=== PATIENT | male | born 1995 | race Caucasian/White ===

== ENCOUNTER 2018-03-03 11:26 | Observation (INO) | payer OTHER ==
[~2018-03-03] VITALS: Ht 182.9 cm; Wt 69.4 kg
[~2018-03-03 11:26] MED LIST: ACET-2043 PO; ALBU2SYR19 NEB; DICY-42 PO; DOCU-416 PO; DORN1SOL2 IH; ENZY1TAB9 PO; HYDR2TAB74 PO; IBUP600T22 PO; LANS30CA63 PO; LIPA1CAP28 PO; LIPA1CAP61 PO; LOR5/325 PO; METO-734 PO; NAPR500T75 PO; PANT40TA65 PO; PER PO; RANI-318 PO; SAL50R INH; SUCR1ORA17 PO; SUCR1TAB51 PO; SUCR1TAB85 PO; SULF-198 PO; TRAM-420 PO; TRAM-627 PO
[2018-03-03] MEDS ORDERED: [UNRECOGNIZED DRUG - CODE] PO (11:37)
[2018-03-03] MEDS ORDERED: NS(*) 0.9% 1000 ML BAG 1,000 ML IV ONE (11:59)
--- NOTE | 2018-03-03 11:59 | ER Report ---
History and Physical Time Seen By MD: 11:59 Hx. of Stated Complaint: PT REPORTS ABD PAIN STARTED ABOUT MID DAY YESTERDAY, REPORTS NAUSEA AND DIARRHEA AND FEVERS, DENIES VOMITING HPI/ROS CHIEF COMPLAINT: Periumbilical abdominal pain HISTORY OF PRESENT ILLNESS: Patient is a 22-year-old male here with complaints of periumbilical abdominal pain, nausea without vomiting, subjective fevers, decreased appetite since yesterday at approximately noon. Patient did tolerate breakfast shortly prior to arrival but reports worsening abdominal pains which are episodic, sharp in nature, severe. Patient also reports that he did pass a bowel movement this morning which was loose which is his baseline in the setting of cystic fibrosis. Patient is treated with pancreatic enzymes, Symdeko, nebulized albuterol, chest physiotherapy vest. Patient has been reporting general malaise, subjective fevers though he is afebrile at this time. Patient was noted to have a cough productive of sputum at baseline, oxygen saturations which are dipping into the mid 80's %, shortness of breath. Patient was tachycardic at time of evaluation, afebrile. Patient did not take analgesics prior to coming to the emergency department. He denies blood in the stools, urine, chest pains, rash. REVIEW OF SYSTEMS: Constitutional: + fever, + chills. Eyes: No discharge. ENT: No sore throat. Cardiovascular: No chest pain, no palpitations. Respiratory: + cough, + shortness of breath. Gastrointestinal: + selina umbilical abdominal pain, no vomiting, + nausea. Genitourinary: No hematuria. Musculoskeletal: No back pain. Skin: No rashes. Neurological: No headache. Allergies: Coded Allergies: No Known Drug Allergies (Unverified , 03/03/18) Home Meds Reported Medications Tezacaftor/Ivacaftor (Symdeko 100/150 mg-150 mg Tabs) 100-150 Mg Tablet.seq, 1 TAB PO BID 03/03/18 Lipase/Protease/Amylase (DELORIS SKY 12,000 UNITS CAPSULE) 1 Each Capsule.dr, 12 EACH PO DIRECTED WITH MEALS 02/02/15 Albuterol Sulf (ALBUTEROL SULFATE) 2 Mg/5 Ml Syrp, 2 MG NEB PRN 07/19/13 Discontinued Reported Medications Lipase/Protease/Amylase (DOMO SKY 21,000 UNIT CAP) 1 Each Capsule.dr, 1 EACH PO 02/02/15 Hx Smoking: No Smoking Status: Never Smoker Exposure to Second Hand Smoke?: No Hx Substance Use Disorder: No Hx Alcohol Use: No Constitutional Vital Sign - Last 24 Hours 03/03/18 03/03/18 03/03/18 03/03/18 11:30 11:31 11:41 11:45 Temp 98.4 Pulse 110 99 Resp 16 B/P (MAP) 130/85 (100) 130/85 Pulse Ox 89 92 O2 Delivery Room Air O2 Flow Rate 2.0 03/03/18 03/03/18 03/03/18 03/03/18 12:00 12:15 12:45 13:00 Pulse 99 97 90 91 B/P (MAP) 127/77 (94) Pulse Ox 90 91 90 90 03/03/18 03/03/18 03/03/18 03/03/18 13:15 13:30 13:45 14:00 Pulse 83 78 73 B/P (MAP) 118/77 (91) Pulse Ox 90 91 89 81 Physical Exam General Appearance: The patient is alert, has no immediate need for airway protection and no signs of toxicity. Moderate distress due to pain, nausea Eyes: Pupils equal and round no pallor or injection. ENT, Mouth: Mucous membranes are moist. Respiratory: There are no retractions, lungs are clear to auscultation. Cardiovascular: + tachycardic, regular Gastrointestinal: Abdomen is soft and + tender in the mid epigastric and periumbilical distribution, no masses, bowel sounds present Neurological: No focal deficits Skin: Warm and dry, no rashes. Musculoskeletal: Neck is supple non tender. Extremities are nontender, nonswollen and have full range of motion. DIFFERENTIAL DIAGNOSIS: After history and physical exam differential diagnosis was considered for abdominal pain including but not limited to appendicitis, cholecystitis, gastritis and urinary tract infection, obstruction, CF exa cerbation Medical Decision Making Data Points Result Diagram: 03/03/18 1136 03/03/18 1136 Laboratory Hematology Test 03/03/18 11:36 03/03/18 12:57 Red Blood Count 5.58 M/uL (4.00-5.60) Mean Corpuscular Volume 88.7 fL (80.0-96.0) Mean Corpuscular Hemoglobin 29.7 pg (26.0-33.0) Mean Corpuscular Hemoglobin Concent 33.4 g/dL (32.0-36.0) Red Cell Distribution Width 13.3 % (11.5-14.5) Mean Platelet Volume 8.4 fL (7.2-11.1) Neutrophils (%) (Auto) 80.5 % (39.4-72.5) Lymphocytes (%) (Auto) 9.2 % (17.6-49.6) Monocytes (%) (Auto) 8.7 % (4.1-12.4) Eosinophils (%) (Auto) 1.2 % (0.4-6.7) Basophils (%) (Auto) 0.4 % (0.3-1.4) Nucleated RBC Relative Count (auto) 0.0 /100WBC Neutrophils # (Auto) 13.1 K/uL (2.0-7.4) Lymphocytes # (Auto) 1.5 K/uL (1.3-3.6) Monocytes # (Auto) 1.4 K/uL (0.3-1.0) Eosinophils # (Auto) 0.2 K/uL (0.0-0.5) Basophils # (Auto) 0.1 K/uL (0.0-0.1) Nucleated RBC Absolute Count (auto) 0.00 K/uL Peripheral Blood Smear No Y/N Sodium Level 141 mmol/L (137-145) Potassium Level 4.1 mmol/L (3.5-5.0) Chloride Level 100 mmol/L (98-107) Carbon Dioxide Level 29 mmol/L (22-30) Blood Urea Nitrogen 12 mg/dl (9-21) Creatinine 0.90 mg/dl (0.66-1.25) Glomerular Filtration Rate Calc > 60.0 Random Glucose 83 mg/dl (75-110) Calcium Level 9.1 mg/dl (8.4-10.2) Total Bilirubin 1.3 mg/dl (0.2-1.3) Aspartate Amino Transf (AST/SGOT) 30 U/L (0-35) Alanine Aminotransferase (ALT/SGPT) 37 U/L (0-56) Alkaline Phosphatase 95 U/L (0-126) Total Protein 8.2 g/dl (6.3-8.2) Albumin 4.0 g/dl (3.5-5.0) Lipase < 10 U/L (23-300) Lactate 0.9 mmol/L (0.7-2.1) Chemistry Test 03/03/18 11:36 03/03/18 12:57 White Blood Count 16.2 k/uL (4.5-11.0) Red Blood Count 5.58 M/uL (4.00-5.60) Hemoglobin 16.5 g/dL (14.0-18.0) Hematocrit 49.5 % (42.0-52.0) Mean Corpuscular Volume 88.7 fL (80.0-96.0) Mean Corpuscular Hemoglobin 29.7 pg (26.0-33.0) Mean Corpuscular Hemoglobin Concent 33.4 g/dL (32.0-36.0) Red Cell Distribution Width 13.3 % (11.5-14.5) Platelet Count 283 K/uL (150-450) Mean Platelet Volume 8.4 fL (7.2-11.1) Neutrophils (%) (Auto) 80.5 % (39.4-72.5) Lymphocytes (%) (Auto) 9.2 % (17.6-49.6) Monocytes (%) (Auto) 8.7 % (4.1-12.4) Eosinophils (%) (Auto) 1.2 % (0.4-6.7) Basophils (%) (Auto) 0.4 % (0.3-1.4) Nucleated RBC Relative Count (auto) 0.0 /100WBC Neutrophils # (Auto) 13.1 K/uL (2.0-7.4) Lymphocytes # (Auto) 1.5 K/uL (1.3-3.6) Monocytes # (Auto) 1.4 K/uL (0.3-1.0) Eosinophils # (Auto) 0.2 K/uL (0.0-0.5) Basophils # (Auto) 0.1 K/uL (0.0-0.1) Nucleated RBC Absolute Count (auto) 0.00 K/uL Peripheral Blood Smear No Y/N Glomerular Filtration Rate Calc > 60.0 Calcium Level 9.1 mg/dl (8.4-10.2) Total Bilirubin 1.3 mg/dl (0.2-1.3) Aspartate Amino Transf (AST/SGOT) 30 U/L (0-35) Alanine Aminotransferase (ALT/SGPT) 37 U/L (0-56) Alkaline Phosphatase 95 U/L (0-126) Total Protein 8.2 g/dl (6.3-8.2) Albumin 4.0 g/dl (3.5-5.0) Lipase < 10 U/L (23-300) Lactate 0.9 mmol/L (0.7-2.1) Depart Departure Latest Vital Signs Vital Signs Date Time Temp Pulse Resp B/P (MAP) Pulse Ox O2 Delivery O2 Flow Rate FiO2 03/03/18 14:00 81 03/03/18 13:45 73 03/03/18 13:30 118/77 (91) 03/03/18 11:41 2.0 03/03/18 11:31 98.4 16 Room Air Condition: Stable Disposition: HOME OR SELF-CARE PHILIP URIBE DO Mar 03, 2018 11:59
[2018-03-03] MEDS ORDERED: ONDANSETRON 4 MG/2 ML VIAL IVP ONE (12:00)
[2018-03-03] MEDS ORDERED: HYDROMORPHONE HCL 1 MG/ML SYRINGE IVP ONE (12:00)
[2018-03-03 12:09] LABS: PLATELET COUNT, AUTOMATED 283 K/uL (150-450)
[2018-03-03] MEDS ORDERED: IOPAMIDOL 76% 100 ML INFUS BTL 100 ML ONE (12:12)
[2018-03-03] MEDS ORDERED: KETAMINE HCL 500 MG/5 ML VIAL IVP ONE ×2 (12:50→12:55)
--- NOTE | 2018-03-03 13:49 | RADIOLOGY IMAGING REPORT ---
FACILITY: [facility] PATIENT NAME: Tobin Hager : 1995 MR: [id number] V: [id number] EXAM DATE: ORDERING PHYSICIAN: PHILIP URIBE TECHNOLOGIST: [place] [facility] [place] Tobin H[place] : 1995 Visit/Account:[id number] Date of Sevice: 03/03/2018 ABDOMEN/PELVIS WITH CONTRAST HISTORY: abd pain, periumbilical TECHNIQUE: Following administration of IV contrast contiguous axial images acquired through the abdom en/pelvis. Coronal and sagittal reformatting also performed.Dose Lowering Technique One of the following dose optimization techniques was utilized in the performance of this exam: Autom ated exposure control; adjustment of the mA and/or kV according to the patient's size; or use of an i terative reconstruction technique. Specific details can be referenced in the facility's radiology C T exam operational policy. CONTRAST: 75 mL Isovue-370 COMPARISON: June 14, 2014 FINDINGS: Visualized lung bases: Negative. Hepatobiliary: There is a small amount of pneumobilia present . There is mild diffuse hepatic stea tosis Spleen: Negative. Adrenals: Negative. Pancreas: Pancreas is not well seen and may be severely fatty replaced Kidneys ureters or bladder: Negative. Genitalia: Negative. GI: The patient is status post near-total colectomy. The previously noted ileostomy has been revers ed. There is marked distention of the distal small bowel loops with small bowel feces measuring up t o 6.8 cm in diameter. There is moderate distention of the residual distal sigmoid colon and rectum w ith feces as well. In the midabdomen there does appear to be a thickened loop of small bowel with as sociated narrowing. The stomach is markedly distended with particulate material which could be related to a recent meal v ersus gastric outlet obstruction either functional or mechanical. Vessels/spaces/nodes: Negative. Bones/soft tissues: Negative. Additional findings: None pertinent. IMPRESSION: There is a small amount of pneumobilia which could be related to reflux of air through the ampulla Diffuse hepatic steatosis Pancreas not well seen and may be severely fatty replaced Patient is status post near-total colectomy. There is marked distention of the distal small bowel lo ops with small bowel feces present and measures up to 6.8 cm in diameter. There is moderate distenti on of the residual distal small bowel and rectum with feces as well. In the midabdomen there appears to be a thickened loop of small bowel with associated narrowing although the distended bowel appears to be distal to this site. The etiology for the bowel distention is not well delineated. Correlati on with clinical findings i.e. presence or absence of bowel sounds needed The stomach is markedly distended with particulate material which could be related to a recent meal v ersus gastric outlet obstruction either functional or mechanical. Results were called to PHILIP URIBE at 03/03/2018 1:44 PM. Report Dictated By: Melissa Vega MD at 03/03/2018 1:20 PM Report E-Signed By: Melissa Vega MD at 03/03/2018 1:44 PM WSN:[email or web address]
[2018-03-03] MEDS ORDERED: ONDANSETRON 4 MG/2 ML VIAL IVP PRN (14:00)
[2018-03-03] MEDS ORDERED: ALBUTEROL/IPRATROPIUM 3 ML NEB NEB PRN (14:00)
[2018-03-03] MEDS ORDERED: FLUSH 10 ML SYR IVP PRN (14:00)
[2018-03-03 14:30] VITALS: BP 105/66
[2018-03-03] MEDS ORDERED: LIPA1CAP61 PO (14:45)
[2018-03-03] MEDS ORDERED: MULT-1377 PO (14:48)
[2018-03-03] MEDS ORDERED: DORN1SOL2 IH (14:48)
--- NOTE | 2018-03-03 15:02 | RADIOLOGY IMAGING REPORT ---
[place] [facility] [place] Tobin Hager : 1995 MR: [id number] V: [id number] EXAM DATE: ORDERING PHYSICIAN: PHILIP URIBE TECHNOLOGIST: Location: Patient: Tobin Hager : 1995 Visit/Account:[id number] Date of Sevice: 03/03/2018 Exam type: CHEST PA AND LAT History: SOB, hypoxia Comparison: February 02, 2015. Findings: There is severe peribronchial thickening throughout the lungs which is most prominent in the mid to u pper lung zones. This has markedly increased when compared the prior study. The findings are consis tent with the clinical history of cystic fibrosis.. Given the interval change this could represent a superimposed infectious/inflammatory process. The cardiac silhouette appears normal. The trachea i s in midline. IMPRESSION: 1. There is severe peribronchial thickening is prominent in the mid to upper lung judd which has i ncreased when compared the prior study. This finding is consistent with the clinical history of cyst ic fibrosis. Given the interval change superimposed infectious/inflammatory process on the backgroun d of chronic peribronchial thickening cannot be excluded Report Dictated By: Melissa Vega MD at 03/03/2018 2:46 PM Report E-Signed By: Melissa Vega MD at 03/03/2018 2:58 PM WSN:[email or web address]
[2018-03-03] MEDS: NS(*) 0.9% 1000 ML BAG 1,000 ML IV PRN (16:27)
[2018-03-03] MEDS: KETOROLAC 30 MG/ML VIAL IVP PRN ×2 (16:37→22:52)
--- NOTE | 2018-03-03 18:28 | Gen Surgery History & Physical ---
History of Present Illness Chief Complaint Abdominal pain, nausea History of Present Illness 22yo male with cystic fibrosis presents with 1 day of increased abdominal pain and nausea. He has chronic abdominal pain due to his cystic fibrosis, chronic pancreatitis, and previous abdominal operations. His symptoms started last evening but he "slept like a rock" overnight but when he awoke his symptoms were still present and even worse prompting him to come in to the ER. In the ER, his WBC was found to be 16K and a CT revealed diffusely dilated distal small bowel and residual sigmoid colon and rectum with stool in rectum/sigmoid and even up into the small bowel. 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 I have admitted him to the handy for further management. At the time of my exam, his abdominal pain is back down to his baseline and he has no further nausea. He report being VERY hungry and wishes to eat. He is passing flatus and his BMs are at his baseline chronic diarrhea since his colectomy. History Problems: (1) H/O colectomy Status: Chronic (2) Personal history of cystic fibrosis Status: Chronic (3) Pancreatic insufficiency due to cystic fibrosis Status: Chronic Home Meds Reported Medications Multivits&Mins/Fa/Coenzyme Q10 (AQUADEKS CHEWABLE TABLET) 1 Each Tab.chew, 1 TAB PO QDAY, TAB.CHEW 03/03/18 Dornase Milo (PULMOZYME) 1 Mg/1 Ml Solution, 1 MG IH QDAY 03/03/18 Lipase/Protease/Amylase (DELORIS SKY 12,000 UNITS CAPSULE) 1 Each Capsule., 6-8 EACH PO 6 tabs with snacks; 8 tabs wth meals 03/03/18 Tezacaftor/Ivacaftor (Symdeko 100/150 mg-150 mg Tabs) 100-150 Mg Tablet.seq, 1 TAB PO BID 03/03/18 Albuterol Sulf (ALBUTEROL SULFATE) 2 Mg/5 Ml Syrp, 2 MG NEB PRN 07/19/13 Discontinued Reported Medications Lipase/Protease/Amylase (DELORIS SKY 12,000 UNITS CAPSULE) 1 Each Capsule.dr, 12 EACH PO DIRECTED WITH MEALS 02/02/15 Lipase/Protease/Amylase (DOMO SKY 21,000 UNIT CAP) 1 Each Capsule.dr, 1 EACH PO 02/02/15 Allergies: Coded Allergies: No Known Drug Allergies (Unverified , 03/03/18) Review of Systems All Systems Reviewed/Normal: Yes, Except as Noted Gastrointestinal: Nausea, Abdominal Pain Exam General Appearance: Alert, Awake, No Acute Distress, Afebrile Neuro: No Gross deficits Eyes: PERRLA GI: Other (Soft, nondistended, mild diffuse TTP, no peritoneal signs) Extremities: Warm, Perfused Psych: Alert & Oriented X3, Appropriate Mood & Affect Medical Decision Making Data Points Result Diagram: 03/03/18 1136 03/03/18 1136 Assessment and Plan Problems: (1) Abdominal pain Status: Acute Assessment & Plan: 03/03/18: His presenting symptoms already seem to be improving. Difficult to say what they're due to. Clinically, he doesn't seem to have and SBO. Possible viral (or bacterial) enteritis. He is admitted and so will try a clear diet tonight and see how he's doing in the morning. Continue IV fluids and IV pain control (non-narcotic) tonight. I have explained the plan to him in detail and he seems to understand and he seems agreeable with this plan. (2) Nausea Status: Acute (3) Personal history of cystic fibrosis Status: Chronic (4) Pancreatic insufficiency due to cystic fibrosis Status: Chronic Condition Stable. Time Spent: < 30 min Venous Thromboembolism VTE Risk Physician Assess for VTE Risk: Yes Patient's VTE Risk: Low VTE Diagnostic Test 2 Days Prior to Admit: No Antithrombotics Is Pt On Any Antithrombotics?: No Problem Qualifiers (1) Abdominal pain: Abdominal location: generalized Qualified Codes: R10.84 - Generalized abdominal pain LATONYA ULLOA MD Mar 03, 2018 18:28
[2018-03-03 18:51] VITALS: BP 103/64
[2018-03-03] MEDS: ACETAMINOPHEN(*)1000 MG/100 ML 100 ML IVPB PRN (19:41)
[2018-03-03] MEDS ORDERED: ALBU2.5V36 INH (20:18)
[2018-03-03] MEDS ORDERED: LIPA1CAP63 PO ×2 (20:18→20:29)
[2018-03-03] MEDS: PATIENT'S OWN MED PO SCH (21:22)
[2018-03-03 22:45] VITALS: BP 103/68
[2018-03-04] MEDS: NS(*) 0.9% 1000 ML BAG 1,000 ML IV PRN (00:37)
[2018-03-04] MEDS: ACETAMINOPHEN(*)1000 MG/100 ML 100 ML IVPB PRN (01:55)
[2018-03-04] MEDS: KETOROLAC 30 MG/ML VIAL IVP PRN (04:56)
[2018-03-04 05:20] VITALS: BP 98/53
[2018-03-04 05:34] LABS: PLATELET COUNT, AUTOMATED 199 K/uL (150-450)
[2018-03-04] MEDS ORDERED: IBUPROFEN 600 MG TAB PO PRN (06:25)
[2018-03-04] MEDS ORDERED: ACETAMINOPHEN 325 MG TAB PO PRN (06:25)
--- NOTE | 2018-03-04 06:27 | General Surgery Progress Note ---
Subjective Progress Notes Subjective Pt without complaints this morning. Abdominal pain is at baseline. No N/V. Tolerating clear diet. Passing flatus and he had several BMs overnight. Physical Exam Vital Signs Date Time Temp Pulse Resp B/P (MAP) Pulse Ox O2 Delivery O2 Flow Rate FiO2 03/04/18 05:20 97.8 57 20 98/53 (68) 93 Nasal Cannula 1.0 Intake and Output 03/04/18 06:59 Intake Total 2350 ml Balance 2350 ml Intake Oral 250 ml IV Total 2100 ml # Voids 2 # Bowel Movements 3 General Appearance: Alert, Awake, No Acute Distress, Afebrile GI: Soft and Non-Tender Extremities: Warm, Perfused Result Diagram: 03/04/18 0503/04/18 0516 Assessment and Plan Problems: (1) Abdominal pain Status: Acute Assessment & Plan: 03/03/18: His presenting symptoms already seem to be improving. Difficult to say what they're due to. Clinically, he doesn't seem to have and SBO. Possible viral (or bacterial) enteritis. He is admitted and so will try a clear diet tonight and see how he's doing in the morning. Continue IV fluids and IV pain control (non-narcotic) tonight. I have explained the plan to him in detail and he seems to understand and he seems agreeable with this plan. 03/04/18: Doing better this morning. WBC down to normal. Afebrile and VSS. Tolerating clears. He feels that he's back to baseline. Will try regular diet and restart his home meds this morning and see how he feels. If he does OK with this then will send him home later today. If his symptoms recur, he'll need further w/u. (2) Nausea Status: Resolved (3) Personal history of cystic fibrosis Status: Chronic (4) Pancreatic insufficiency due to cystic fibrosis Status: Chronic Condition Stable. Time Spent: < 30 min Exam Sepsis Risk: No Definite Risk Problem Qualifiers (1) Abdominal pain: Abdominal location: generalized Qualified Codes: R10.84 - Generalized abdominal pain LATONYA ULLOA MD Mar 04, 2018 06:27
[2018-03-04 07:29] VITALS: BP 84/52
[2018-03-04] MEDS ORDERED: DORNASE ALFA IH SCH (09:00)
[2018-03-04] MEDS ORDERED: PANTOPRAZOLE SOD 40 MG IV VIAL IVP SCH (09:00)
[2018-03-04] MEDS ORDERED: MULTIVITAMINS TAB PO SCH ×2 (09:00→09:45)
[2018-03-04 09:24] VITALS: BP 95/58
[2018-03-04] MEDS: PATIENT'S OWN MED PO SCH ×2 (09:28→20:15)
[2018-03-04] MEDS: LIPASE/PROTEASE/AMYLASE 1 EACH CAPSULE.DR PO SCH ×2 (09:30→16:30)
[2018-03-04] MEDS: PANTOPRAZOLE SOD 40 MG TABEC PO SCH (09:33)
[2018-03-04] MEDS: MULTIVIT WITH IRON MINERALS PO SCH (10:00)
[2018-03-04 10:50] VITALS: Ht 182.9 cm; Wt 69.4 kg
[2018-03-04] MEDS ORDERED: LIPASE/PROTEASE/AMYLASE 1 EACH CAPSULE.DR PO PRN (11:30)
[2018-03-04 12:13] VITALS: BP 119/67
[2018-03-04] MEDS ORDERED: KETOROLAC 30 MG/ML VIAL IVP PRN (16:40)
[2018-03-04] MEDS ORDERED: ACETAMINOPHEN(*)1000 MG/100 ML 100 ML IVPB PRN (16:40)
[2018-03-04] MEDS: HYDROmorphone HCL 2 MG/ML SDV IVP PRN ×2 (16:53→18:52)
--- NOTE | 2018-03-04 18:10 | RADIOLOGY IMAGING REPORT ---
FACILITY: [facility] [place] PATIENT NAME: Ronald Hager : 1995 MR: [id number] V: [id number] EXAM DATE: ORDERING PHYSICIAN: LATONYA ULLOA TECHNOLOGIST: [place] [facility] [place] H[place] : 1995 Visit/Account:[id number] Date of Sevice: 03/04/2018 KUB SINGLE VIEW ABDOMEN HISTORY: Abdominal pain COMPARISON: None FINDINGS: Lower chest: Negative Abdomen: No free intraperitoneal air. There is a nonobstructive bowel gas pattern. There are no abn ormal calcifications. Bony structures are unremarkable. Moderate rectal stool. IMPRESSION: 1. Moderate rectal stool. Report Dictated By: Juan Brown MD at 03/04/2018 6:06 PM Report E-Signed By: Juan Brown MD at 03/04/2018 6:08 PM WSN:[email or web address]
[2018-03-04 18:16] VITALS: BP 119/67
[2018-03-04 23:37] VITALS: BP 110/59
[2018-03-05 03:13] VITALS: BP 100/64
[2018-03-05 06:01] LABS: PLATELET COUNT, AUTOMATED 224 K/uL (150-450)
[2018-03-05] MEDS ORDERED: KCL/D1/2NS 20 MEQ 1000 ML 1,000 ML IV SCH (06:05)
--- NOTE | 2018-03-05 07:02 | General Surgery Progress Note ---
Subjective Progress Notes Subjective Pt developed severe abdominal pain again yesterday afternoon. Now resolved. Now he feels "great" and back to his normal. Physical Exam Vital Signs Date Time Temp Pulse Resp B/P (MAP) Pulse Ox O2 Delivery O2 Flow Rate FiO2 03/05/18 03:13 97.5 52 20 100/64 (76) 92 Nasal Cannula 1.0 Intake and Output 03/05/18 07:00 Intake Total 1320 ml Balance 1320 ml Intake Oral 320 ml IV Total 1000 ml # Voids 1 # Bowel Movements 1 General Appearance: Alert, Awake, No Acute Distress, Afebrile GI: Soft and Non-Tender Extremities: Warm, Perfused Result Diagram: 03/05/18 0532 03/05/18 0532 Assessment and Plan Problems: (1) Abdominal pain Status: Acute Assessment & Plan: 03/03/18: His presenting symptoms already seem to be improving. Difficult to say what they're due to. Clinically, he doesn't seem to have and SBO. Possible viral (or bacterial) enteritis. He is admitted and so will try a clear diet tonight and see how he's doing in the morning. Continue IV fluids and IV pain control (non-narcotic) tonight. I have explained the plan to him in detail and he seems to understand and he seems agreeable with this plan. 03/04/18: Doing better this morning. WBC down to normal. Afebrile and VSS. Tolerating clears. He feels that he's back to baseline. Will try regular diet and restart his home meds this morning and see how he feels. If he does OK with this then will send him home later today. If his symptoms recur, he'll need further w/u. 03/05/18: Doing better this morning but his pain recurred yesterday. Will get UGI/SBFT today. NPO until after study completed. (2) Nausea Status: Resolved (3) Personal history of cystic fibrosis Status: Chronic (4) Pancreatic insufficiency due to cystic fibrosis Status: Chronic Condition STable. Time Spent: < 30 min Exam Sepsis Risk: No Definite Risk Problem Qualifiers (1) Abdominal pain: Abdominal location: generalized Qualified Codes: R10.84 - Generalized abdominal pain LATONYA ULLOA MD Mar 05, 2018 07:02
[2018-03-05 07:37] VITALS: BP 106/66
[2018-03-05] MEDS: LIPASE/PROTEASE/AMYLASE 1 EACH CAPSULE.DR PO SCH ×3 (07:40→17:18)
[2018-03-05] MEDS: PANTOPRAZOLE SOD 40 MG TABEC PO SCH (09:53)
[2018-03-05] MEDS: MULTIVIT WITH IRON MINERALS PO SCH (09:53)
[2018-03-05] MEDS: PATIENT'S OWN MED PO SCH ×2 (09:53→20:26)
[2018-03-05] MEDS ORDERED: BARIUM SULFATE 176 GM BTL PO ONE ×2 (10:32→10:33)
[2018-03-05 12:20] VITALS: BP 128/78
[2018-03-05 15:22] VITALS: BP 124/70
--- NOTE | 2018-03-05 17:23 | RADIOLOGY IMAGING REPORT ---
FACILITY: [facility] [place] PATIENT NAME: Ronald Hager : 1995 MR: [id number] V: [id number] EXAM DATE: ORDERING PHYSICIAN: LATONYA ULLOA TECHNOLOGIST: Location: [facility] Patient: Ronald Hager : 1995 Visit/Account:[id number] Date of Sevice: 03/05/2018 ADDENDUM #1 The study was performed as a single contrast upper GI and small bowel series with thin barium only Report Dictated By: Melissa Vega MD at 03/05/2018 5:29 PM Report E-Signed By: Melissa Vega MD at 03/05/2018 5:29 PM ORIGINAL REPORT Exam type: UPPER GI W/SMALL BOWEL SERIES History: Abdominal pain Comparison: CT abdomen and pelvis March 03, 2018. Findings: Double contrast upper GI series was performed with thick and thin barium and air contrast gastric eso phageal reflux was not observed. There is no evidence of esophageal narrowing or mucosal erosion. N o abnormality the stomach was seen. There appear to be mild thickening of the folds in the second po rtion of the duodenum. Barium was followed throughout the small bowel to the distal sigmoid colon an d rectum. Patient is status post subtotal colectomy. There is a mildly prominent loop of small robi l in the left lower quadrant although barium did pass through into the rectum on the 15 minute image. The fluoroscopy dose area product was 904.68 micro-Briscoe per meter squared IMPRESSION: 1. Patient is status post subtotal colectomy with passage of barium through the small bowel to the d istal sigmoid anastomosis and 15 minutes. There is one mildly prominent loop of small bowel in the l eft lower abdomen although did not appear to obstruct passage of contrast in the small bowel appeared much less prominent when compared to the recent CT scan The folds along the second portion the duodenum appeared mildly thickened could be related to an infl ammatory process Report Dictated By: Melissa Vega MD at 03/05/2018 5:14 PM Report E-Signed By: Melissa Vega MD at 03/05/2018 5:19 PM WSN:[email or web address]
[2018-03-05 18:51] VITALS: BP 115/65
--- NOTE | 2018-03-06 06:47 | Short(Outpt) Discharge Summary ---
Discharge Summary Reason for Hosp/Final Diag: (1) Abdominal pain Status: Acute Hospital Course & Plan: 03/03/18: His presenting symptoms already seem to be improving. Difficult to say what they're due to. Clinically, he doesn't seem to have and SBO. Possible viral (or bacterial) enteritis. He is admitted and so will try a clear diet tonight and see how he's doing in the morning. Continue IV fluids and IV pain control (non-narcotic) tonight. I have explained the plan to him in detail and he seems to understand and he seems agreeable with this plan. 03/04/18: Doing better this morning. WBC down to normal. Afebrile and VSS. Tolerating clears. He feels that he's back to baseline. Will try regular diet and restart his home meds this morning and see how he feels. If he does OK with this then will send him home later today. If his symptoms recur, he'll need further w/u. 03/05/18: Doing better this morning but his pain recurred yesterday. Will get UGI/SBFT today. NPO until after study completed. 03/06/18: Doing better. No further episodes of pain or cramps. UGI/SBFT was normal without obstruction, contrast proceeded rapidly to colon and rectum. Tolerating diet. Wants to go home. Will d/c to home this morning. (2) Nausea Status: Resolved (3) Personal history of cystic fibrosis Status: Chronic (4) Pancreatic insufficiency due to cystic fibrosis Status: Chronic Departure Discharge to: Home, Self Care Discharge Instructions Home Meds Reported Medications Lipase/Protease/Amylase (DELORIS SKY 24,000 UNITS CAPSULE) 1 Each Capsule.dr, 3-7 EACH PO 7 CAPSULES WITH MEALS; 3 CAPSULES WITH SNACKS 03/03/18 Albuterol Sulfate 0.083% (ALBUTEROL SULFATE 0.083%) 2.5 Mg/3 Ml Vial.neb, 2.5 MG INH QID, INH 03/03/18 Multivits&Mins/Fa/Coenzyme Q10 (AQUADEKS CHEWABLE TABLET) 1 Each Tab.chew, 1 TAB PO QDAY, TAB.CHEW 03/03/18 Dornase Milo (PULMOZYME) 1 Mg/1 Ml Solution, 1 MG IH QDAY 03/03/18 Tezacaftor/Ivacaftor (Symdeko 100/150 mg-150 mg Tabs) 100-150 Mg Tablet.seq, 1 TAB PO BID 03/03/18 Discontinued Reported Medications Lipase/Protease/Amylase (DELORIS SKY 24,000 UNITS CAPSULE) 1 Each Capsule., 7 EACH PO 03/03/18 Lipase/Protease/Amylase (DELORIS SKY 12,000 UNITS CAPSULE) 1 Each Capsule., 12 EACH PO DIRECTED WITH MEALS 02/02/15 Lipase/Protease/Amylase (DOMO SKY 21,000 UNIT CAP) 1 Each Capsule.dr, 1 EACH PO 02/02/15 Albuterol Sulf (ALBUTEROL SULFATE) 2 Mg/5 Ml Syrp, 2 MG NEB PRN 07/19/13 Diet: Regular Activity: As Tolerated Special Instructions: If your symptoms continued, come back to the hospital so I can assess your stomach, small intestines, and colon/rectum endoscopically. You may resume all of your regular medications as they were prescribed. Problem Qualifiers (1) Abdominal pain: Abdominal location: generalized Qualified Codes: R10.84 - Generalized abdominal pain LATONYA ULLOA MD Mar 06, 2018 06:47
[2018-03-06 07:51] VITALS: BP 125/78
== END 2018-03-06 06:44 | disposition home or self-care (01) ==
LOC: ER 12:08 → OBSVTOIN 14:03 → INTOOBSV 14:03 → MED 14:03
PROVIDERS: ADMIT Surgery; ATTEND Surgery
DX: E84.9 Cystic fibrosis, unspecified (principal); K86.89 Other specified diseases of pancreas; R11.0 Nausea; R10.9 Unspecified abdominal pain
CPT/HCPCS: 36415; 71046; 74018; 74177; 74245; 81001; 83605; 83690; 85025; 87040; 96361; 96374; 96375; 99285; G0378; J0131; J1170; J1885; J2405; J3480; J7030; Q9967; 82040; 82247; 82310; 82374; 82435; 82565; 82947; 84075; 84132; 84155; 84295; 84450; 84460; 84520